=== PATIENT | male | born 1955 | race African-American/Black ===

== ENCOUNTER 2023-08-10 16:46 | Emergency (ER) | payer MEDICARE, OTHER ==
[~2023-08-10] VITALS: Ht 175.3 cm; Wt 84.1 kg
[2023-08-10] MEDS ORDERED: CARV25 PO (17:01)
[2023-08-10] MEDS ORDERED: CLON1PAT14 TD (17:01)
[2023-08-10] MEDS ORDERED: TELM40 PO (17:01)
[2023-08-10 17:18] LABS: COVID AG,FIA SOURCE NASAL SWAB
[2023-08-10] MEDS ORDERED: 0.9% SODIUM CHLORIDE 10 ML SYRINGE IVP PRN (17:45)
[2023-08-10 17:49] LABS: INFLUENZA TYPE A NEGATIVE FOR TYPE A (NEGATIVE); INFLUENZA TYPE B NEGATIVE FOR TYPE B (NEGATIVE); SARS-COV2 (COVID) ANTIGEN,FIA Negative (Negative)
[2023-08-10] MEDS: SODIUM CHLORIDE 0.9% 2,500 ML IV ONE (17:59)
[2023-08-10] MEDS: PIPERACILLIN/TAZO 3.375 GM/D5W 50 ML IV ONE (17:59)
[2023-08-10 18:03] LABS: BASOPHILS % (AUTO) 0.1 % (0.0-2.0); EOSINOPHILS % (AUTO) 0.3 % (1.0-6.0); HEMATOCRIT 38.3 % (41-53); HEMOGLOBIN 12.6 g/dL (13.5-17.5); LYMPHOCYTES # (AUTO) 1.2 K/uL (1.0-4.8); MEAN CORPUSCULAR HEMOGLOBIN 27.7 pg (26.0-34.0); MEAN CORPUSCULAR HGB CONC 32.9 G/dL (31.0-37.0); MEAN CORPUSCULAR VOLUME 84 fL (80-100); MONOCYTES # (AUTO) 0.9 K/uL (0.1-1.0); MONOCYTES % (AUTO) 7.6 % (2.0-9.0); NEUTROPHILS # (AUTO) 9.1 K/uL (1.8-7.7); PLATELET COUNT (AUTO) 119 K/uL (150-450); RED BLOOD CELL COUNT(AUTO) 4.54 MIL/uL (4.50-5.90); RED CELL DISTRIBUTION WIDTH 16.7 % (11.5-14.5); WHITE BLOOD COUNT (AUTO) 11.3 K/uL (4.5-11.0)
[2023-08-10 18:20] LABS: TROPONIN I-HIGH SENSITIVITY 23 ng/L (<76)
[2023-08-10 18:31] LABS: B-TYPE NATRIURETIC PEPTIDE 92 pg/mL (0-100)
[2023-08-10 18:38] LABS: LACTIC ACID 1.8 mmol/L (0.4-2.0)
[2023-08-10 18:54] LABS: APPEARANCE,URINE CLEAR (CLEAR); BILIRUBIN,URINE NEGATIVE (NEGATIVE); COLOR,URINE LIGHT YELLOW (YELLOW); GLUCOSE, URINE (UA) NEGATIVE (NEGATIVE); KETONES,URINE NEGATIVE (NEGATIVE); LEUKOCYTE ESTERASE ,URINE NEGATIVE (NEGATIVE); NITRATE,URINE NEGATIVE (NEGATIVE); OCCULT BLOOD,URINE TRACE (NEGATIVE); PH,URINE 5.5 (5.0-8.0); PROTEIN,URINE 30-70 mg/dL (NEGATIVE); SPECIFIC GRAVITIY, URINE 1.012 (1.003-1.030); UROBILINOGEN,URINE <=1.0 mg/dL (<=1.0)
[2023-08-10 18:54] LABS: ALANINE AMINOTRANSFERASE 24 U/L (12-78); ALBUMIN 3.7 g/dL (3.4-5.0); ALKALINE PHOSPHATASE 94 U/L (46-116); ASPARTATE AMINOTRANSFERASE 19 U/L (15-37); BILIRUBIN,TOTAL 1.1 mg/dL (0.1-1.0); CALCIUM, TOTAL 9.8 mg/dL (8.8-10.5); CARBON DIOXIDE 23 mmol/L (22-29); CREATINE KINASE, TOTAL ONLY 104 U/L (39-308); CREATININE 1.78 mg/dL (0.60-1.30); GLOMERULAR FILTR. RATE CALC 38 mL/min (>60); GLUCOSE,RANDOM 115 mg/dL (70-110); UREA NITROGEN, BLOOD 19 mg/dL (7-18)
[2023-08-10 19:02] LABS: INR 1.1 (0.9-1.1); PROTHROMBIN TIME 11.9 SEC (9.4-11.6)
[2023-08-10 19:33] LABS: ANION GAP 12 mmol/L (8-16); CHLORIDE 101 mmol/L (98-107); POTASSIUM 4.4 mmol/L (3.5-5.1); SODIUM SERUM 136 mmol/L (136-145)
[2023-08-10 19:33] LABS: BACTERIA,URINE None Seen /HPF (None Seen); RBC,URINE 0-2 /HPF (0-2); WBC,URINE None Seen /HPF (0-5)
[2023-08-10] MEDS: ENOXAPARIN SODIUM 100 MG/ML PF SYRINGE SQ SCH (19:42)
[2023-08-10 19:58] LABS: TOTAL PROTEIN, SERUM 7.7 g/dL (6.4-8.2)
[2023-08-10] MEDS: ACETAMINOPHEN 325 MG TABLET PO ONE (22:47)
[2023-08-10 23:18] VITALS: BP 132/54; PULSE 87; RESP 20; TEMP 98.6
== END 2023-08-11 00:40 | disposition short-term general hospital (02) ==
LOC: EMS 16:50
DX: I80.02 Phlebitis and thrombophlebitis of superficial vessels of left lower extremity (principal); A41.9 Sepsis, unspecified organism; R50.9 Fever, unspecified; I10 Essential (primary) hypertension; Z88.2 Allergy status to sulfonamides; Z20.822 Contact with and (suspected) exposure to COVID-19
CPT/HCPCS: 99291; 93970; 96365; 71045; 87426; 80053; 81001; 82550; 83605; 83880; 84484; 85025; 85610; 85730; 87040; 87205; 87804; 36415; 87077; 93005; 96372; 84145; J1650; J2543